=== PATIENT | female | born 1960 | race African-American/Black ===

== ENCOUNTER 2016-09-05 06:50 | Day surgery (SDC) | payer OTHER ==
[2016-09-04 12:12] LABS: HEMATOCRIT 43.6 % (36.0-48.0); HEMOGLOBIN 14.6 g/dL (12.0-16.0)
[~2016-09-05 06:50] MED LIST: IBU400
[2016-09-05] MEDS ORDERED: COUGH (15:26)
[2016-09-05] MEDS ORDERED: COD (15:26)
[2016-09-05] MEDS ORDERED: CEFT5 PO (15:26)
== END 2016-09-05 23:59 | disposition home or self-care (01) ==
LOC: MSC 06:50
PROVIDERS: Orthopaedic Surgery
DX: M24.631 Ankylosis, right wrist (principal); Z53.9 Procedure and treatment not carried out, unspecified reason
CPT/HCPCS: 85014; 85018; 93005; A9270-GY